=== PATIENT | female | born 1985 | race Two or more races ===

== ENCOUNTER 2024-02-13 07:51 | Emergency (ER) | payer BC, SELFPAY ==
[2024-02-13 07:56] VITALS: PULSE 79; O2SAT 100
[2024-02-13 08:08] VITALS: BP 115/84; PULSE 81; RESP 19; TEMP 36.8; O2SAT 98; BMI 27.3
--- NOTE | 2024-02-13 08:30 | XR_ITS ---
Examination: PA lateral chest 2 views TECHNIQUE: Upright PA lateral chest 2 views Exam date and time: February 13, 2024 0844 hours Comparison December 31, 2015 INDICATIONS: Shortness of breath chest pain beginning 5 days ago FINDINGS: Normal heart size Lungs are clear. The osseous structures are intact IMPRESSION: No active disease
[2024-02-13] MEDS: KETOROLAC INJ 60 MG/2 ML VIAL 30 MG IM (08:59)
--- NOTE | 2024-02-13 11:02 | PD.EDCHEST ---
ED Chest Pain RME/HPI General Chief Complaint: Chest Pain Stated Complaint: CHEST PAIN Time Seen by Provider: 02/13/24 08:13 Source: patient Arrival date/time: 02/13/24 07:51 This is a 38-year-old female who presented today with complaints of cough for 7 days no fever, cough, shortness of breath, chest pain, chills, abdominal pain, diarrhea, dysuria, hematuria, hematochezia, melena, focal weakness, fall, blunt trauma, loss of consciousness, incontinence. Patient reports she was seen by her PCP and has been on Levaquin reports no improvement in cough. Patient here requesting a chest x-ray rule out pneumonia. No other concerns. Mode of arrival: ambulatory Related Data Previous Rx's ?Medication ?Instructions ?Recorded albuterol sulfate 90 mcg/actuation 2 inh inhalation Q6H PRN shortness 02/13/24 breath activated powder inhaler of breath #1 ea ipratropium bromide 17 2 puff inhalation Q8H #12.9 grams 02/13/24 mcg/actuation HFA aerosol inhaler oxycodone-acetaminophen 5 mg-325 1 tab PO Q8H PRN pain #7 tabs 02/13/24 mg tablet prednisone 50 mg tablet 50 mg PO QDAY 5 days #5 tabs 02/13/24 Allergies Allergy/AdvReac Type Severity Reaction Status Date / Time No Known Allergies Allergy Verified 02/27/21 14:27 Review of Systems Review of Systems Systems Reviewed: All systems reviewed, normal except as documented Narrative Review of Systems: Gen: No fever, no chills, no weight loss EYES: No discharge, no visual changes, no pain HEENT: No ear pain, no congestion, no sore throat PULM: No shortness of breath, ++ cough, no congestion CV: No chest pain, no dyspnea on exertion, no palpitations GI: No nausea, no vomiting, no diarrhea, no pain, no constipation : No frequency, no urgency, no dysuria Musc/skel: No joint pain, no back pain Skin: No rash Psyc: No hallucinations, no depression Heme/Lymph: No easy bleeding or bruising tendencies Neuro: No weakness, no headache ED Exam Narrative Physical exam: General: Sittiing in Exam table in no acute distress, answering questions appropriately HENT: normocephalic, atraumatic, EOMI, PERRLA, moist mucous membranes Chest: chest wall is nontender Cardiac: regular rate and rhythm, normal S1 and S2, no murmurs, rubs, or gallops, capillary refill ?2 seconds Pulmonary: clear to auscultation bilaterally, no wheezing, crackles, rhonchi upper chest Abdominal: active bowel sounds, soft, nontender, nondistended Neuro: A&OX3, CN II-XII intact, sensation grossly intact bilaterally in UE and LE. Skin: no rashes, no ecchymosis Ext: no lower extremity edema Course Quality Measures none Orders Category Date Time Status Bedside COVID-19 Antigen Test NOW Care 02/13/24 08:30 Completed Bedside Influenza A&B Antigen Test NOW Care 02/13/24 08:30 Completed XR chest 2V Stat Exams 02/13/24 08:30 Completed Ketorolac Inj [Toradol Inj] Med 02/13/24 08:30 Discontinued 30 mg IM X1 ONE Vital Signs Vital signs: Vital Signs Temperature 98.2 F 02/13/24 08:08 Pulse Rate 81 02/13/24 08:08 Respiratory Rate 19 02/13/24 08:08 Blood Pressure 115/84 02/13/24 08:08 Pulse Oximetry (%) 98 02/13/24 08:08 Oxygen Delivery Method Room Air 02/13/24 08:08 Chest Pain MDM Narrative MDM Narrative:: 38-year-old healthy female evaluated for bronchitis possible pneumonia. Patient currently on Levaquin for pneumonia treatment x-ray was completed which demonstrates no active disease. Advised most likely her symptoms are due to bronchitis medication sent to pharmacy. No hypoxia no change in condition patient will be discharged home for close follow-up with her PCP. Patient data External records reviewed:: [facility] previous records Clinical information provided by:: patient Social determinants that could affect healthcare access:: none Patient has the following chronic illnesses:: None How is presenting disease/condition affected by chronic disease/condition?: no chronic disease Evaluation data The following diagnostics were reviewed and interpreted by me:: radiology exam(s) Lab and/or radiology exams considered but not ordered:: Yes Interpretation Summary: Examination: PA lateral chest 2 views TECHNIQUE: Upright PA lateral chest 2 views Exam date and time: February 13, 2024 0844 hours Comparison December 31, 2015 INDICATIONS: Shortness of breath chest pain beginning 5 days ago FINDINGS: Normal heart size Lungs are clear. The osseous structures are intact IMPRESSION: No active disease Medications / Prescriptions Medications or Prescriptions considered but not ordered:: no Medication administrations:: Medication Administration History Discontinued Medications Ketorolac Tromethamine (Ketorolac Inj 60 Mg/2 Ml Vial) 30 mg IM X1 ONE Stop: 02/13/24 08:31 Last Admin: 02/13/24 08:59 Dose: 30 mg Documented By: KM All medications administered and effective Consultations Consultation(s) initiated? (list below): No Diagnosis Chest Pain Differential Diagnosis: fracture of rib, costochondritis, chest pain and other (Pneumonia, bronchitis) Most likely diagnosis given after review of the tests above:: Bronchitis Admission Indicated Admission indicated?: not indicated Admission Request Was there a request for admission?: No Disposition Plan Disposition Plan: Discharge Discharge Attestation Discharge Attestation: The patient and all family members were given an opportunity to ask questions and understood the discharge instructions. Discharge instructions specifically effects, indications for sooner follow up or return to the emergency department, and the expected course of current diagnosis. Patient condition: Stable Discharge Plan Plan Patient Disposition: HOME (Self Care) Patient condition on transfer: Stable Prescriptions/Referrals Prescriptions/Med Rec: New prednisone 50 mg tablet 50 mg PO QDAY 5 Days Qty: 5 0RF albuterol sulfate 90 mcg/actuation aerosol powdr breath activated 2 inh inhalation Q6H PRN (Reason: shortness of breath) Qty: 1 0RF ipratropium bromide 17 mcg/actuation HFA aerosol inhaler 2 puff inhalation Q8H Qty: 12.9 0RF oxycodone-acetaminophen 5-325 mg tablet 1 tab PO Q8H MDD 3 PRN (Reason: pain) Qty: 7 0RF Referrals: No Primary/Family,Physician [Primary Care Provider] - In 1 week Problem List Clinical Impression: Bronchitis Patient/Caregiver Discharge Instructions Discharge Activity: activity as tolerated Education Materials: ED Bronchitis, No Antibiotic (Adult) Additional Instructions: Please follow-up with your primary doctor Return to the emergency department with any worsening symptoms any condition. Print Language: Slovak Stand Alone Forms: Cristin Award Info., Patient Portal Info Letter PA/FABI Supervising Physician PA/FABI Supervising Physician: Dr. Alba
[2024-02-13 11:28] VITALS: BP 115/84; PULSE 99; RESP 17; TEMP 36.7; O2SAT 99
== END 2024-02-13 11:38 | disposition home or self-care (01) ==
PROVIDERS: Emergency Provider Emergency Medicine
DX: J40 Bronchitis, not specified as acute or chronic (principal)
CPT/HCPCS: 71046; 87400; 87811; 96372; 99283; J1885